=== PATIENT | female | born 1970 | race Caucasian/White ===

== ENCOUNTER 2023-03-06 14:59 | Outpatient (CLI) | payer BC, SELFPAY ==
--- NOTE | ~2023-03-06 | MM_ITS ---
EXAMINATION: MM screening cari BI w rhona HISTORY: Screening TECHNIQUE: Craniocaudal and mediolateral oblique 3-D tomosynthesis images were obtained and synthetic 2-D images were generated. CAD analysis was submitted and interpreted. COMPARISON: Comparison to multiple prior studies sequentially, with oldest reviewed study dated 09/19. BREAST PARENCHYMAL COMPOSITION: There are scattered areas of fibroglandular density. FINDINGS: There is no evidence of suspicious mass, calcification, or architectural distortion to sugg est malignancy in either breast. There has been no suspicious interval change. IMPRESSION: 1. No mammographic evidence of malignancy. 2. Recommend routine screening mammography in one year. BI-RADS Category 1: Negative Reviewed, dictated and finalized at location A. ANALYST
== END 2023-03-06 15:00 | disposition home or self-care (01) ==
LOC: ANHIMG 15:02
PROVIDERS: PCP Internal Medicine; Visit Provider Internal Medicine
DX: Z12.31 Encounter for screening mammogram for malignant neoplasm of breast (principal)
CPT/HCPCS: 77063; 77067

== ENCOUNTER 2024-10-08 15:01 | Outpatient (CLI) | payer BC, SELFPAY ==
--- NOTE | ~2024-10-08 | MM_ITS ---
EXAMINATION: MM screening cari BI w rhona HISTORY: Screening TECHNIQUE: Craniocaudal and mediolateral oblique 3-D tomosynthesis images were obtained and synthetic 2-D images were generated. CAD analysis was submitted and interpreted. COMPARISON: Comparison to multiple prior studies sequentially, with oldest reviewed study dated 09/19. BREAST PARENCHYMAL COMPOSITION: Not dense: There are scattered areas of fibroglandular density. FINDINGS: There is no evidence of suspicious mass, calcification, or architectural distortion to sugg est malignancy in either breast. There has been no suspicious interval change. IMPRESSION: 1. No mammographic evidence of malignancy. 2. Recommend routine screening mammography in one year. BI-RADS Category 1: Negative Reviewed, dictated and finalized at location B.
--- OUTSIDE RECORDS SUMMARY | 2024-10-08 16:28 | XMS_ITS | Clinical Summary ---
Author Organization [facility] Address [address] [place] [address] Care Team Providers Care Maintenance Data Analyst Name Role Phone Cliff Chapa MD Primary Care Provider [phone] Allergies No known active allergies Medications cetirizine (ZyrTEC) 5 mg chewable tablet Take 1 tablet (5 mg total) by mouth daily Active albuterol HFA (PROVENTIL HFA,VENTOLIN HFA,PROAIR HFA) 90 mcg/actuation inhaler Inhale 2 puffs every 6 (six) hours as needed for wheezing Active Dulera 100-5 mcg/actuation inhaler Inhale 2 puffs 2 (two) times a day 4 Active cholecalciferol (VITAMIN D-3) 2000 unit tablet Take 2 tablets (4,000 Units total) by mouth daily Active fluticasone propionate (FLONASE) 50 mcg/actuation nasal spray Administer 1 spray into each nostril daily Active Active Problems Problem Noted Date Diagnosed Date Screening for colon cancer 12/20/2022 Surgical History Surgery Date Site/Laterality Comments COLONOSCOPY 01/20/2023 COLON SURGERY TUBAL LIGATION Family History Medical History Relation Name Comments Colon cancer Maternal Grandfather Relation Name Status Comments Maternal Grandfather Social History Tobacco Use Types Packs/Day Years Used Date Smoking Tobacco: Never Smokeless Tobacco: Never Tobacco Cessation:Counseling Given: Yes Personal Safety Answer Date Recorded Have you ever been in or are you currently in a harmful physical or emotional relationship or is someone making you feel afraid or unsafe? 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 Gender Identity Not on file Sexual Orientation Not on file Obstetrics History Last Filed Vital Signs Vital Sign Reading Time Taken Comments Blood Pressure 120/70 07/04/2024 11:34 AM DRY WALL INSTALLER Pulse 113 07/04/2024 11:34 AM DRY WALL INSTALLER Temperature 37.2 C (98.9 F) 07/04/2024 11:34 AM DRY WALL INSTALLER Respiratory Rate 14 07/04/2024 11:34 AM DRY WALL INSTALLER Oxygen Saturation 98% 07/04/2024 11:34 AM DRY WALL INSTALLER Inhaled Oxygen Concentration - - Weight 85.7 kg (189 lb) 07/04/2024 11:34 AM DRY WALL INSTALLER Height 162.6 cm (5' 4) 07/04/2024 11:34 AM DRY WALL INSTALLER Body Mass Index 32.44 07/04/2024 11:34 AM DRY WALL INSTALLER Plan of Treatment Health Maintenance Due Date Last Done Comments Breast Cancer Screening-Mammogram 1970 Cervical Cancer Screening 1970 Depression Screening 1970 Hepatitis C Screening 1970 Hepatitis B Screening 12/06/1989 Regular Well Visit/Exam 18-64 12/06/1989 Covid-19 Vaccine ( season) 2023 03/01/2022, 03/20/2021, 07/18/2020, Additional history exists Influenza Vaccine (Season Ended) 2024 02/11/2022, 01/28/2021, 03/14/2020, Additional history exists DTaP/Tdap/Td Vaccine (3 - Td or Tdap) 01/28/2031 01/28/2021, 02/09/2011 Colon Cancer Screening-Colonoscopy 01/20/2033 01/20/2023 Zoster Vaccine Completed 01/05/2023, 05/12/2022 Pneumococcal vaccine <65 Aged Out No longer eligible based on patient's age to complete this topic Procedures Procedure Name Priority Date/Time Associated Diagnosis Comments COLONOSCOPY 01/20/2023 8:32 AM CDT from Last 3 Months or Most Recently Relevant to Health Maintenance Results * COLONOSCOPY (01/20/2023 8:32 AM CDT) Anatomical Region Laterality Modality Other Narrative Procedure Note Ricardo Flood MD - 01/20/2023 8:32 AM CDT [facility] Patient Name: Malia Winslow Procedure Date: 01/20/2023 8:32 AM Date of : 1970 Admit Type: Outpatient Age: 52 Gender: Female Attending MD: Ricardo Flood M.D. [facility]: [facility] 2 Note Status: Finalized Patient Profile: Refer to note in patient chart for documentation of history and physical. Procedure: Colonoscopy Indications: Screening for colorectal malignant neoplasm, Thisis the patient's first colonoscopy Referring MD: Cliff Chapa MD Providers: Ricardo Flood M.D. Impression: - Hemorrhoids found on perianal exam. - The entire examined colon is normal. - No specimens collected. Recommendation: - Discharge patient to home. - Resume previous diet. - Continue present medications. - Repeat colonoscopy in 10 years for screening purposes. - Return to primary care physician as previously scheduled. Medicines: Propofol per Anesthesia Complications: No immediate complications. Estimated Blood Loss: Estimated blood loss: none. Procedure: Pre-Anesthesia Assessment: - This assessment was completed [Time ofAssessment] prior to the administration of sedation. The benefits, risks and alternatives of theprocedure and sedation were discussed and informed consentwas obtained. All questions were answered. Please referto the signed informed consent document in the medical record. The bowel preparation used was Miralax via single dose instruction. The bowel preparation used was bisacodyl tablets via single dose instruction.The scope was passed under direct vision. TheColonoscope [id number] was introduced through the anus and advanced to the the cecum, identified by appendiceal orifice and ileocecal valve. The colonoscopy was performed without difficulty. The patient tolerated the procedure well. The qualityof the bowel preparation was good. The ileocecalvalve, appendiceal orifice, and rectum werephotographed. Findings: Hemorrhoids were found on perianal exam. The colon (entire examined portion) appeared normal. Electronically signed by Ricardo Flood M.D. Ricardo Flood M.D. 01/20/2023 9:08:20 AM Number of Addenda: 0 Note Initiated On: 01/20/2023 8:32 AM Procedure Code(s): --- Professional --- G0121, Colorectal cancer screening; colonoscopy on individual not meeting criteria for high risk --- Technical --- G0121, Colorectal cancer screening; colonoscopy on individual not meeting criteria for high risk Diagnosis Code(s): --- Professional --- K64.9, Unspecified hemorrhoids Z12.11, Encounter for screening for malignant neoplasm of colon --- Technical --- K64.9, Unspecified hemorrhoids Z12.11, Encounter for screening for malignant neoplasm of colon CPT copyright 2020 [employer]. All rights reserved. The codes documented in this report are preliminary and upon freight car cleaner reviewmay be revised to meet current compliance requirements. Recognized by the [employer] for promoting quality in endoscopy Ricardo Flood MD ENDOSCOPY PROCEDURES Final Re sult from Last 3 Months or Most Recently Relevant to Health Maintenance Insurance [facility] [employer] [facility] [facility] [employer] Advance Directives For more information, please contact: [phone] * Full Code (Latest Code Status on File) Date Activated Date Inactivated Comments 01/20/2023 7:59 AM 01/20/2023 1:47 PM * Full Code Date Activated Date Inactivated Comments 01/20/2023 7:59 AM 01/20/2023 7:59 AM Care Teams Maintenance Data Analyst Relationship Specialty Start Date End Date Cliff Chapa MD [address] [place] [address] PCP - General Internal Medicine 05/13/22
--- OUTSIDE RECORDS SUMMARY | 2024-10-08 16:28 | XMS_ITS | Referral Summary ---
Author Organization 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 Gender Identity Not on file Sexual Orientation Not on file Last Filed Vital Signs Vital Sign Reading Time Taken Comments Blood Pressure 120/70 07/04/2024 11:34 AM PROFESSOR OF ART HISTORY Pulse 113 07/04/2024 11:34 AM PROFESSOR OF ART HISTORY Temperature 37.2 C (98.9 F) 07/04/2024 11:34 AM PROFESSOR OF ART HISTORY Respiratory Rate 14 07/04/2024 11:34 AM PROFESSOR OF ART HISTORY Oxygen Saturation 98% 07/04/2024 11:34 AM PROFESSOR OF ART HISTORY Inhaled Oxygen Concentration - - Weight 85.7 kg (189 lb) 07/04/2024 11:34 AM PROFESSOR OF ART HISTORY Height 162.6 cm (5' 4) 07/04/2024 11:34 AM PROFESSOR OF ART HISTORY Body Mass Index 32.44 07/04/2024 11:34 AM PROFESSOR OF ART HISTORY Plan of Treatment Not on file Procedures Procedure Name Priority Date/Time Associated Diagnosis Comments COLONOSCOPY 01/20/2023 8:32 AM CDT from Last 3 Months or Most Recently Relevant to Health Maintenance Results * COLONOSCOPY (01/20/2023 8:32 AM CDT) Anatomical Region Laterality Modality Other Narrative Procedure Note Ricardo Flood MD - 01/20/2023 8:32 AM CDT Center Patient Name: Malia Winslow Procedure Date: 01/20/2023 8:32 AM Date of : 1970 Admit Type: Outpatient Age: 52 Gender: Female Attending MD: Ricardo Flood M.D. Room: [facility] END[facility]OM 2 Note Status: Finalized [...] scope was passed under direct vision. TheColonoscope [id number] was introduced through the anus and advanced [...] malignant neoplasm of colon CPT copyright 2020 [employer]. All rights reserved. The codes documented in this report are preliminary and upon transportation dispatcher reviewmay be revised to meet current compliance requirements. Recognized by the [employer] for promoting quality in endoscopy Ricardo Flood MD ENDOSCOPY PROCEDURES Final Re sult from Last 3 Months or Most Recently Relevant to Health Maintenance Insurance [facility] [employer] [facility] [employer] Advance Directives For more information, please contact: [phone] * Full Code (Latest Code Status on File) Date Activated Date Inactivated Comments 01/20/2023 7:59 AM 01/20/2023 1:47 PM * Full Code Date Activated Date Inactivated Comments 01/20/2023 7:59 AM 01/20/2023 7:59 AM Care Teams Pile Driving Nozzleman Relationship Specialty Start Date End Date Cliff Chapa MD [address] [place] [address] PCP - General Internal Medicine 05/13/22
--- OUTSIDE RECORDS SUMMARY | 2024-10-08 16:28 | XMS_ITS | Clinical Summary ---
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 Gender Identity Not on file Sexual Orientation Not on file Plan of Treatment Health Maintenance Due Date Last Done Comments Hepatitis C Virus (HCV) Screening 1970 Hepatitis B Immunization (1 of 3 - 19+ 3-dose series) 12/06/1990 Pap Smear 12/06/1992 Cervical Cancer Screening (CCS) 12/06/2001 HPV/Cotest 12/06/2001 Colonoscopy 12/06/2016 Colorectal Cancer Screening 12/06/2016 Cologuard 12/06/2021 Immunochemical Fecal Occult Blood 12/06/2021 Mammogram 12/06/2021 Pneumococcal Immunization (50+ years) (1 of 1 - PCV) 12/06/2021 Zoster Immunization (1 of 2) 12/06/2021 Influenza Immunization (#1) 2023 09/3 , 03/14/2020, 02/11/2019, Additional history exists SARS-COV-2 Immunization (2023- season) 2023 03/20/2021, 07/18/2020, 06/20/2020 Respiratory Syncytial Virus (RSV) Immunization (Adult) (1 - 1-dose 75+ series) 12/06/2046 DTaP/Tdap/Td Immunization Discontinued 01/28/2021, 03/2011 TdaP Immunization Completed 01/28/2021, 02/09/2011 Meningococcal Immunization (ACWY) Aged Out No longer eligible based on patient's age to complete this topic Pneumococcal Immunization Combined Aged Out No longer eligible based on patient's age to complete this topic Rotavirus Immunization Aged Out No lo nger eligible based on patient's age to complete this topic
== END 2024-10-08 15:02 | disposition home or self-care (01) ==
LOC: CHSIMG 15:04
PROVIDERS: PCP Internal Medicine; Visit Provider Internal Medicine
DX: Z12.31 Encounter for screening mammogram for malignant neoplasm of breast (principal)
CPT/HCPCS: 77063; 77067